=== PATIENT | male | born 1995 | race Caucasian/White ===

== ENCOUNTER 2016-12-16 10:15 | Emergency (ER) | payer BC ==
[2016-12-16 10:40] VITALS: BP 129/91
--- OUTSIDE RECORDS SUMMARY | 2016-12-16 11:31 | XMS REPORT | Continuity of Care Document ---
:1995 Author Organization [facility] ([facility]) Address [address] [place] [address] Phone [phone] Care Team Providers Name Role Phone Unavailable Primary Care Provider Unavailable Source Comments This disclosure is being made pursuant to the Care Everywhere program, applicable federal and state laws, and may not contain all informaitonavailable regarding this patient.[facility] ([facility]) Active Allergies and Adverse Reactions Not on File Current Medications Not on file Active Problems Not on file Social History Tobacco Use Types Packs/Day Years Used Date Never Assessed Plan of Care Health Maintenance Due Date Last Done Comments Hepatitis B Vaccine (1 of 3 - Primary Series) 1993 HPV Vaccine (1 of 3 - Male 3 Dose Series) 02/02/2004 Tdap Vaccine 02/02/2004 Lipid Disorder Screening 2011 MMR Vaccine 2011 Td Vaccine 2011 Varicella Vaccine (1 of 2 - Adult - No Evidence of 2011 Immunity) Influenza Vaccine: Seasonal (#1) 05/26/2016 Results from Last 3 Months Not on file
== END 2016-12-16 11:17 | disposition left against medical advice (07) ==
LOC: ER 10:15
DX: Z53.21 Procedure and treatment not carried out due to patient leaving prior to being seen by health care provider (principal)